=== PATIENT | female | born 1995 | race Caucasian/White ===

== ENCOUNTER → 2018-04-18 16:35 | Outpatient (CLI) | payer BC, SELFPAY ==
[2018-04-18 18:50] LABS: Thyroid Stimulating Hormone 2.05 uIU/mL (0.47-4.68)
== END ==
PROVIDERS: Visit Provider Physician Assistant
DX: R63.8 Other symptoms and signs concerning food and fluid intake (principal)
CPT/HCPCS: 36415; 84443

== ENCOUNTER → 2020-12-31 09:31 | Outpatient (CLI) | payer OTHER, MEDICAID, SELFPAY ==
[2020-12-31] MEDS: COVID-19 VACC #1, MRNA(MOD) 100 MCG/0.5 ML VIAL IM (09:39)
== END ==
PROVIDERS: PCP Registered Nurse Diabetes Educator; Visit Provider Internal Medicine
DX: Z23 Encounter for immunization (principal)
CPT/HCPCS: 0011A; 91301

== ENCOUNTER → 2021-01-29 09:49 | Outpatient (CLI) | payer OTHER, MEDICAID, SELFPAY ==
[2021-01-29] MEDS: COVID-19 VACC #2, MRNA(MOD) 100 MCG/0.5 ML VIAL IM (09:55)
== END ==
PROVIDERS: PCP Registered Nurse Diabetes Educator; Visit Provider Internal Medicine
DX: Z23 Encounter for immunization (principal)
CPT/HCPCS: 0012A; 91301

== ENCOUNTER 2022-11-20 14:00 | Emergency (ER) | payer OTHER, MEDICAID, SELFPAY ==
[2022-11-20] VITALS (21 sets, daily range): BP systolic 93–126; BP diastolic 53–76; PULSE 60–96; RESP 13–28; TEMP 37.2; O2SAT 93–100; BMI 23.3
[2022-11-20] MEDS: MECLIZINE HCL 12.5 MG TABLET 25 MG PO (14:48)
[2022-11-20] MEDS: ONDANSETRON 4 MG ODT SL (14:48)
--- NOTE | 2022-11-20 16:47 | PC.NURSE ---
Pt also reporting neck numbness with difficulty swallowing. Pt denies any allergies medications.
--- NOTE | 2022-11-20 16:55 | DI.RAD.S_ITS ---
PROCEDURE: XR CHEST 1V INDICATIONS: chest pain TECHNIQUE: One view of the chest was acquired. COMPARISON: None. FINDINGS: Surgical changes and devices: None. Lungs and pleura: On this semiupright portable chest examination, no large pneumothorax or large pleural effusions are seen. No focal infiltrates are seen. Mediastinum: Mediastinal contours appear normal. Heart size is normal. Bones and chest wall: No suspicious bony lesions. Overlying soft tissues appear unremarkable. IMPRESSION: Normal portable chest. Dictated by: Ken Mcarthur M.D. on 11/20/2022 at 16:25 Approved by: Ken Mcarthur M.D. on 11/20/2022 at 16:26
[2022-11-20 17:34] LABS: Add Manual Diff / Slide Review NO; Basophils Absolute Auto 0 /uL (0-100); Basophils Percent Auto 0.4 % (0-2); Eosinophils Absolute Auto 0 /uL (0-450); Eosinophils Percent Auto 0.5 % (2-4); Hematocrit 40.6 % (36-46); Hemoglobin 13.7 g/dL (12.0-16.0); Lymphocytes Absolute Auto 2100 /uL (1100-4500); Lymphocytes Percent Auto 29.6 % (25-40); Mean Corpuscular HGB Conc 33.7 % (30-36); Mean Corpuscular Hemoglobin 30.8 PG (26-34); Mean Corpuscular Volume 91.3 fL (80-100); Monocytes Absolute Auto 400 /uL (0-900); Monocytes Percent Auto 5.1 % (3-14); Neutrophils Absolute Auto 4600 /uL (1500-7000); Neutrophils Percent Auto 64.4 % (50-75); Platelet Count 293 X10^3/uL (150-400); Red Blood Cell Count 4.45 X10^6/uL (4.0-5.2); White Blood Cell Count 7.2 X10^3/uL (4.5-11.0)
[2022-11-20 17:41] LABS: COVID19 -Nasal RAPID Negative (Negative)
[2022-11-20 17:43] LABS: Prothrombin Time 11.5 SECONDS (10.1-12.7)
[2022-11-20 17:46] LABS: PTT Partial Thromboplastin Tim 27 SECONDS (26-36)
[2022-11-20 17:54] LABS: Alanine Aminotransferase 16 IU/L (<35); Albumin 4.6 g/dL (3.5-5.0); Albumin Globulin Ratio 1.3 (1.0-2.8); Alkaline Phosphatase 44 U/L (38-126); Aspartate Aminotransferase 25 IU/L (14-36); BUN Creatinine Ratio 18.9 (6-22); Bilirubin Total 0.2 mg/dL (0.2-1.3); Blood Urea Nitrogen 10 mg/dL (7-17); Calcium 9.6 mg/dL (8.4-10.2); Carbon Dioxide 29 mmol/L (22-32); Chloride 102 mmol/L (98-107); Creatine Kinase 68 U/L (30-135); Estimated Glomerular Filt Rate > 60 mL/min (>60); Globulin 3.5 g/dL (1.7-4.1); Glucose 87 mg/dL (70-100); HEMOLYSIS < 15 (0-50); Lipase 120 U/L (23-300); Potassium 3.9 mmol/L (3.4-5.1); Sodium 138 mmol/L (137-145); Total Protein 8.1 g/dL (6.3-8.2)
[2022-11-20 18:06] LABS: Troponin I < 0.012 ng/mL (0.01-0.034)
--- NOTE | 2022-11-20 18:20 | ED.GENADULT ---
HPI - General Adult General Chief complaint: Dizziness Stated complaint: headaches, dizziness, nausea Time Seen by Provider: 11/20/22 18:11 Mode of arrival: Ambulatory History of Present Illness HPI narrative: 27F nonsmoker without chronic medical history presents with about 2 weeks of a gradually worsening generalized headache and lightheadedness. She's had some ear pain bilaterally, but denies any change in hearing or drainage. When questioned about her lightheadedness she states that she is had poor appetite and not been eating and drinking as much as normal. She denies any vomiting or diarrhea but has been a little bit nauseated the past few days. She states that upon standing she feels lightheaded and like she might pass out but she has not. She complains of throat pain and difficulty swallowing but no trouble breathing. No chest pain or shortness of breath. No abdominal pain or diarrhea, no dysuria, frequency or urgency. Related Data Home Medications Medication Instructions Recorded Confirmed spironolactone PO 04/17/18 10/24/22 Previous Rx's Medication Instructions Recorded ketorolac 10 mg tablet 10 mg PO Q6H PRN pain #14 tabs 11/20/22 meclizine 25 mg tablet 25 mg PO BID-TID PRN dizziness #14 11/20/22 tabs ondansetron 4 mg disintegrating 4 mg PO TID-QID PRN nausea and 11/20/22 tablet vomiting #10 tabs Allergies Allergy/AdvReac Type Severity Reaction Status Date / Time tea tree oil Allergy Intermediate swelling Uncoded 11/20/22 14:17 of area of contact. Review of Systems Review of Systems Narrative: GENERAL: Denies chills, fatigue, malaise, fever, sweats. HEENT: See HPI RESPIRATORY: Denies dyspnea, cough, wheezing, hemoptysis, sputum. CARDIOVASCULAR: Denies chest pain, palpitations, orthopnea, edema, GASTROINTESTINAL: See HPI : Denies dysuria, frequency, incontinence, hematuria, urinary retention. MUSCULOSKELETAL: denies weakness, joint pain, or bony pain SKIN: Denies rash, skin lesions, or other NEUROLOGIC: See HPI PSYCHIATRIC: No concerning psychosocial issues. 12 point review of systems is negative except for those stated above Patient History Medical History Acne vulgaris Right otitis media Scoliosis Surgical History Anesthesia Perkins teeth removed Family History Father Hyperlipidemia Grandmother Cancer Grandfather Aneurysm, aortic Grandmother Stroke Social History Smoking Status: Never smoker Smoking Status: Never smoker alcohol intake frequency: holidays/special occasions only Substance Use Type: marijuana Exam Narrative Exam Narrative: GENERAL: [27] year old patient appears stated age. Well-developed patient, in mild distress. HEAD: Atraumatic. Normocephalic. EYES: Pupils equal round and reactive. Extraocular motions intact. No scleral icterus. No injection or drainage. ENT: Moist mucous membranes, Nose without bleeding, purulent drainage. Throat without erythema, tonsillar hypertrophy or exudate. Airway patent. Minimal effusions bilateral ears, no bulging, erythema or loss of landmarks NECK: Trachea midline. Non tender, no meningeal signs CARDIOVASCULAR: Regular rate and rhythm without murmurs, gallops, or rubs. RESPIRATORY: Clear to auscultation. Breath sounds equal bilaterally. No wheezes, rales, or rhonchi. GASTROINTESTINAL: Abdomen soft, non-tender, nondistended. EXTREMITIES: No edema or joint tenderness. BACK: Nontender without deformity or crepitance. No flank tenderness. NEURO: AOx3. Cranial nerves 2-12 grossly intact SKIN: No rash or erythema of visible areas Initial Vital Signs Initial Vital Signs: Vital Signs Temperature 98.9 F 11/20/22 14:07 Pulse Rate 96 H 11/20/22 14:07 Respiratory Rate 16 11/20/22 14:07 Blood Pressure 126/72 11/20/22 14:07 Pulse Oximetry 100 11/20/22 14:07 Oxygen Delivery Method Room Air 11/20/22 14:07 Course Orders Ordered: ED Orders 11/20/22 16:55 XR chest 1V Stat 11/20/22 17:20 CRP [C-Reactive Protein Quant] Stat Complete Blood Count AUTO DIFF Stat Comprehensive Metabolic Panel Stat D Dimer Stat ESR [Erythrocyte Sedimentation Rate] Stat Lipase Stat Magnesium Stat PTT Partial Thromboplastin Sin Stat Prothrombin Time INR Stat Troponin & CK Cardiac Panel Stat 11/20/22 17:22 COVID19 -Nasal RAPID Stat 11/20/22 19:11 Strep Grp A by PCR Rapid Stat Throat Culture Stat 11/20/22 19:52 CT head/brain wo con Stat Discontinued Medications Aspirin (Aspirin 81 Mg Chew Tab) 324 mg PO NOW ONE Stop: 11/20/22 16:56 Last Admin: 11/20/22 16:58 Dose: Not Given Documented By: KLS Sodium Chloride (Normal Saline 0.9%) 1,000 mls @ 1,000 mls/hr IV BOLUS ONE Stop: 11/20/22 19:36 Last Infusion: 11/20/22 20:12 Dose: 0 mls/hr Documented By: Admin: 11/20/22 18:57 Dose: 1,000 mls/hr Documented By: SB Acetaminophen (Ofirmev) 1,000 mg in 100 mls @ 400 mls/hr IV NOW ONE Stop: 11/20/22 20:06 Last Admin: 11/20/22 20:10 Dose: 400 mls/hr Documented By: SB Sodium Chloride (Normal Saline 0.9%) 1,000 mls @ 1,000 mls/hr IV BOLUS ONE Stop: 11/20/22 20:51 Last Admin: 11/20/22 20:10 Dose: 1,000 mls/hr Documented By: SB Ketorolac Tromethamine (Ketorolac 30 Mg/Ml Vial) 15 mg IV NOW ONE Stop: 11/20/22 18:38 Last Admin: 11/20/22 18:57 Dose: 15 mg Documented By: SB Meclizine HCl (Meclizine Hcl 12.5 Mg Tablet) 25 mg PO NOW ONE Stop: 11/20/22 14:42 Last Admin: 11/20/22 14:48 Dose: 25 mg Documented By: [facility] Meclizine HCl (Meclizine Hcl 12.5 Mg Tablet) 50 mg PO NOW ONE Stop: 11/20/22 20:57 Last Admin: 11/20/22 21:04 Dose: 50 mg Documented By: BS Metoclopramide HCl (Metoclopramide 10 Mg/2 Ml Inj) 10 mg IV NOW ONE Stop: 11/20/22 18:38 Last Admin: 11/20/22 18:58 Dose: 10 mg Documented By: SB Ondansetron HCl (Ondansetron 4 Mg Odt) 4 mg SL NOW ONE Stop: 11/20/22 14:44 Last Admin: 11/20/22 14:48 Dose: 4 mg Documented By: [facility] Ondansetron HCl (Ondansetron 4 Mg Odt Prepack) 1 bottle MISC SEEINSTR ONE Stop: 11/20/22 19:46 Last Admin: 11/20/22 19:50 Dose: 1 bottle Documented By: BS Reevaluation(s) Reevaluation #1: Patient received meclizine and reports some improved dizziness Vital Signs Vital signs: Vital Signs - 8 hr 11/20/22 18:16 11/20/22 18:17 11/20/22 18:17 Pulse Rate 73 64 Respiratory Rate 18 14 Blood Pressure 102/59 L Pulse Oximetry 99 11/20/22 18:30 11/20/22 19:00 11/20/22 19:08 Pulse Rate 83 69 69 Respiratory Rate 16 24 24 Blood Pressure Pulse Oximetry 99 99 99 11/20/22 19:08 11/20/22 19:15 11/20/22 19:15 Pulse Rate 68 Respiratory Rate 22 Blood Pressure 107/76 97/57 L Pulse Oximetry 100 11/20/22 19:30 11/20/22 19:30 11/20/22 19:40 Pulse Rate 73 79 Respiratory Rate 15 25 H Blood Pressure 107/63 Pulse Oximetry 98 100 11/20/22 19:40 11/20/22 20:03 11/20/22 20:05 Pulse Rate 73 Respiratory Rate Blood Pressure 110/66 121/53 L Pulse Oximetry 93 11/20/22 20:05 11/20/22 20:15 11/20/22 20:15 Pulse Rate 77 63 Respiratory Rate 24 14 Blood Pressure 93/54 L Pulse Oximetry 100 100 11/20/22 20:29 11/20/22 20:29 11/20/22 20:30 Pulse Rate 81 Respiratory Rate 28 H Blood Pressure 120/75 114/60 Pulse Oximetry 100 11/20/22 20:30 11/20/22 20:45 11/20/22 20:45 Pulse Rate 69 60 Respiratory Rate 20 13 Blood Pressure 102/62 Pulse Oximetry 100 100 11/20/22 20:59 11/20/22 20:59 11/20/22 21:00 Pulse Rate 76 66 Respiratory Rate 18 18 Blood Pressure 104/68 Pulse Oximetry 100 100 Medical Decision Making Lab Data 11/20/22 17:20 11/20/22 17:20 Labs: Lab Results 11/20/22 11/20/22 11/20/22 Range/Units 17:20 17:20 17:20 WBC 7.2 (4.5-11.0) X10^3/uL RBC 4.45 (4.0-5.2) X10^6/uL Hgb 13.7 (12.0-16.0) g/dL Hct 40.6 (36-46) % MCV 91.3 (80-100) fL MCH 30.8 (26-34) PG MCHC 33.7 (30-36) % RDW 13.0 (11.6-14.8) % Plt Count 293 (150-400) X10^3/uL Neut % (Auto) 64.4 (50-75) % Lymph % (Auto) 29.6 (25-40) % [place] % (Auto) 5.1 (3-14) % Eos % (Auto) 0.5 L (2-4) % Baso % (Auto) 0.4 (0-2) % Neut # (Auto) 4600 (9192-7901) /uL Lymph # (Auto) 2100 (6792-6484) /uL [place] # (Auto) 400 (0-900) /uL Eos # (Auto) 0 (0-450) /uL Baso # (Auto) 0 (0-100) /uL ESR (0-20) MM/HR PT 11.5 (10.1-12.7) SECONDS INR 1.0 (0.9-1.3) APTT 27 (26-36) SECONDS D-Dimer (<500) ng/ml Sodium 138 (137-145) mmol/L Potassium 3.9 (3.4-5.1) mmol/L Chloride 102 (98-107) mmol/L Carbon Dioxide 29 (22-32) mmol/L BUN 10 (7-17) mg/dL Creatinine 0.53 (0.52-1.04) mg/dL Estimated GFR > 60 (>60) mL/min BUN/Creatinine Ratio 18.9 (6-22) Glucose 87 (70-100) mg/dL Calcium 9.6 (8.4-10.2) mg/dL Magnesium 2.0 (1.6-2.3) mg/dL Total Bilirubin 0.2 (0.2-1.3) mg/dL AST 25 (14-36) IU/L ALT 16 (<35) IU/L Alkaline Phosphatase 44 (38-126) U/L Total Creatine Kinase 68 (30-135) U/L CK-MB (CK-2) TNP CK-MB (CK-2) Rel Index TNP Troponin I < 0.012 (0.01-0.034) ng/mL C-Reactive Protein (<1.0) mg/dL Total Protein 8.1 (6.3-8.2) g/dL Albumin 4.6 (3.5-5.0) g/dL Globulin 3.5 (1.7-4.1) g/dL Albumin/Globulin Ratio 1.3 (1.0-2.8) Lipase 120 (23-300) U/L SARS-CoV-2 (PCR) (Negative) Group A Strep (PCR) (Negative) 11/20/22 11/20/22 11/20/22 Range/Units 17:20 17:20 17:20 WBC (4.5-11.0) X10^3/uL RBC (4.0-5.2) X10^6/uL Hgb (12.0-16.0) g/dL Hct (36-46) % MCV (80-100) fL MCH (26-34) PG MCHC (30-36) % RDW (11.6-14.8) % Plt Count (150-400) X10^3/uL Neut % (Auto) (50-75) % Lymph % (Auto) (25-40) % [place] % (Auto) (3-14) % Eos % (Auto) (2-4) % Baso % (Auto) (0-2) % Neut # (Auto) (8357-9348) /uL Lymph # (Auto) (4098-9448) /uL [place] # (Auto) (0-900) /uL Eos # (Auto) (0-450) /uL Baso # (Auto) (0-100) /uL ESR 8 (0-20) MM/HR PT (10.1-12.7) SECONDS INR (0.9-1.3) APTT (26-36) SECONDS D-Dimer < 215 (<500) ng/ml Sodium (137-145) mmol/L Potassium (3.4-5.1) mmol/L Chloride (98-107) mmol/L Carbon Dioxide (22-32) mmol/L BUN (7-17) mg/dL Creatinine (0.52-1.04) mg/dL Estimated GFR (>60) mL/min BUN/Creatinine Ratio (6-22) Glucose (70-100) mg/dL Calcium (8.4-10.2) mg/dL Magnesium (1.6-2.3) mg/dL Total Bilirubin (0.2-1.3) mg/dL AST (14-36) IU/L ALT (<35) IU/L Alkaline Phosphatase (38-126) U/L Total Creatine Kinase (30-135) U/L CK-MB (CK-2) CK-MB (CK-2) Rel Index Troponin I (0.01-0.034) ng/mL C-Reactive Protein < 0.5 (<1.0) mg/dL Total Protein (6.3-8.2) g/dL Albumin (3.5-5.0) g/dL Globulin (1.7-4.1) g/dL Albumin/Globulin Ratio (1.0-2.8) Lipase (23-300) U/L SARS-CoV-2 (PCR) (Negative) Group A Strep (PCR) (Negative) 11/20/22 11/20/22 Range/Units 17:22 19:11 WBC (4.5-11.0) X10^3/uL RBC (4.0-5.2) X10^6/uL Hgb (12.0-16.0) g/dL Hct (36-46) % MCV (80-100) fL MCH (26-34) PG MCHC (30-36) % RDW (11.6-14.8) % Plt Count (150-400) X10^3/uL Neut % (Auto) (50-75) % Lymph % (Auto) (25-40) % [place] % (Auto) (3-14) % Eos % (Auto) (2-4) % Baso % (Auto) (0-2) % Neut # (Auto) (0304-9837) /uL Lymph # (Auto) (9775-9601) /uL [place] # (Auto) (0-900) /uL Eos # (Auto) (0-450) /uL Baso # (Auto) (0-100) /uL ESR (0-20) MM/HR PT (10.1-12.7) SECONDS INR (0.9-1.3) APTT (26-36) SECONDS D-Dimer (<500) ng/ml Sodium (137-145) mmol/L Potassium (3.4-5.1) mmol/L Chloride (98-107) mmol/L Carbon Dioxide (22-32) mmol/L BUN (7-17) mg/dL Creatinine (0.52-1.04) mg/dL Estimated GFR (>60) mL/min BUN/Creatinine Ratio (6-22) Glucose (70-100) mg/dL Calcium (8.4-10.2) mg/dL Magnesium (1.6-2.3) mg/dL Total Bilirubin (0.2-1.3) mg/dL AST (14-36) IU/L ALT (<35) IU/L Alkaline Phosphatase (38-126) U/L Total Creatine Kinase (30-135) U/L CK-MB (CK-2) CK-MB (CK-2) Rel Index Troponin I (0.01-0.034) ng/mL C-Reactive Protein (<1.0) mg/dL Total Protein (6.3-8.2) g/dL Albumin (3.5-5.0) g/dL Globulin (1.7-4.1) g/dL Albumin/Globulin Ratio (1.0-2.8) Lipase (23-300) U/L SARS-CoV-2 (PCR) Negative (Negative) Group A Strep (PCR) Negative (Negative) Point of Care Testing Test Results Negative Urine Dip Bedside Urine Glucose Negative Bedside Urine Bilirubin - Negative Bedside Urine Ketone - Negative Urine Specific [place] 1.010 Bedside Urine Occult Blood - Negative Bedside Urine pH 6.5 Bedside Urine Protein - Negative Bedside Urine Urobilinogen - Negative Bedside Urine Nitrite - Negative Bedside Urine Leukocytes - Negative Esterase Point of care testing: Point of Care Testing Test Results Negative Urine Dip Bedside Urine Glucose Negative Bedside Urine Bilirubin - Negative Bedside Urine Ketone - Negative Urine Specific [place] 1.010 Bedside Urine Occult Blood - Negative Bedside Urine pH 6.5 Bedside Urine Protein - Negative Bedside Urine Urobilinogen - Negative Bedside Urine Nitrite - Negative Bedside Urine Leukocytes - Negative Esterase MDM Narrative Medical decision making narrative: CC: 27-year-old female with various symptoms including headache, dizziness, and nausea Complicating co-morbidities: None known Data collected from: Patient Medical records reviewed: Prior notes reviewed in our EMR Differential considered, but not limited to: Viral upper respiratory infection, dehydration, intracranial hemorrhage, meningitis, versus other Exam documented above, pertinent findings include: Alert and oriented x3, no meningeal signs, heart rate regular, lungs clear, abdomen soft, no focal neurologic findings Lab Test results independently reviewed as above. Pertinent findings: No leukocytosis or left shift, no signs of anemia, electrolytes and renal function within normal, strep and COVID negative Imaging studies independently reviewed: Head CT without acute findings Treatments: Fluids, Toradol, Reglan, meclizine Re-evaluations: Significant improvement, dizziness tremendously improved, headache tremendously improved. Vitals stable, patient ambulatory in the department, tolerating orals. Discussion: Previously healthy patient with about 2 weeks of various symptoms that seem most likely related to a viral syndrome. She has reassuring history and physical exam, labs, imaging and response to therapies. No evidence of any significant lab abnormality, head CT without significant findings. Though meningitis considered as thought extremely unlikely given her history and physical, lack of meningeal signs. We did discuss performing a lumbar puncture including the risks and benefits of doing so. This discussion was between myself the patient and her mother. We sure the opinion that the risk is not worth the potential benefit at this time given her reassuring presentation. Disposition: see below, along with detailed discharge instructions that have been reviewed with patient as well as indications for ED re-evaluation and additional outpatient follow up Discharge Plan Departure Patient Disposition: Home Clinical Impression: Acute viral syndrome Instructions: DI for Viral Syndrome Activity Restrictions/Additional Instructions: *You have been diagnosed with [Viral syndrome ] *What to do: *Please continue to take your regular medications as directed. [ x] New medication prescriptions sent to your pharmacy: [ [facility]] [ ] New medication written as a paper prescription [ ] No new medications given *Please follow up with your primary care provider in 2-3 days, call for an appointment. Let them know you were seen in the Emergency Department and that we ask that you be seen in follow up. We will electronically transmit a record of today's note if your PCP is in our system *If you do not have a primary care provider please contact the [facility] Resource line at [phone]. They will ask some questions about your medical history and help get you set up with a doctor in the community. *Return to Emergency Department if you should have any new, worsening or concerning symptoms, such as [fever greater than 101 F, shaking chills, worsening pain, persistent vomiting or other bothersome symptoms] Prescriptions: New ketorolac 10 mg tablet 10 mg PO Q6H PRN (Reason: pain) Qty: 14 0RF ondansetron 4 mg tablet,disintegrating 4 mg PO TID-QID PRN (Reason: nausea and vomiting) Qty: 10 0RF meclizine 25 mg tablet 25 mg PO BID-TID PRN (Reason: dizziness) Qty: 14 0RF No Action spironolactone PO Stand Alone Forms: Patient Portal/API
[2022-11-20 18:37] LABS: D Dimer < 215 ng/ml (<500)
[2022-11-20 18:42] LABS: C-Reactive Protein Quant < 0.5 mg/dL (<1.0)
[2022-11-20] MEDS: KETOROLAC 30 MG/ML VIAL 15 MG IV (18:57)
[2022-11-20] MEDS: SODIUM CHLORIDE 0.9% 1,000 ML 1000 ML IV ×2 (18:57→20:10)
[2022-11-20] MEDS: METOCLOPRAMIDE 10 MG/2 ML INJ IV (18:58)
[2022-11-20 19:31] LABS: Erythrocyte Sedimentation Rate 8 MM/HR (0-20)
[2022-11-20 19:38] LABS: Strep Grp A by PCR Rapid Negative (Negative)
[2022-11-20] MEDS: ONDANSETRON 4 MG ODT PREPACK 1 BOTTLE MISC (19:50)
--- NOTE | 2022-11-20 19:52 | DI.CT.S_ITS ---
PROCEDURE: CT HEAD/BRAIN WO CON INDICATIONS: severe headache, prior brain swelling TECHNIQUE: Noncontrast 4.5 mm thick angled axial sections acquired from the foramen magnum to the vertex, with coronal and sagittal reformats. For radiation dose reduction, the following was used: automated exposure control, adjustment of mA and/or kV according to patient size. COMPARISON: None. FINDINGS: Image quality: Excellent. CSF spaces: Basal cisterns are patent. No extra-axial fluid collections. Ventricles are normal in size and shape. Brain: No intracranial hemorrhage, mass, or mass effect. Valadez-white matter interface appears preserved. Skull and face: Calvarium and visualized facial bones are intact, without suspicious lesions. Sinuses: Visualized sinuses and mastoids are clear. IMPRESSION: 1. No acute intracranial abnormality. Dictated by: Alireza Ayala M.D. on 11/20/2022 at 20:33 Approved by: Alireza Ayala M.D. on 11/20/2022 at 20:34
[2022-11-20] MEDS: ACETAMINOPHEN IV 1,000 MG/100 ML VIAL 400 MG IV (20:10)
[2022-11-20] MEDS: MECLIZINE HCL 12.5 MG TABLET 50 MG PO (21:04)
== END 2022-11-20 21:08 | disposition home or self-care (01) ==
PROVIDERS: Emergency Medicine; Emergency Provider Emergency Medicine
DX: B34.9 Viral infection, unspecified (principal); H92.03 Otalgia, bilateral; R51.9 Headache, unspecified; R07.9 Chest pain, unspecified; Z20.822 Contact with and (suspected) exposure to COVID-19
CPT/HCPCS: 36415; 70450; 71045; 80053; 81003; 81025; 82550; 83690; 83735; 84484; 85025; 85379; 85610; 85651; 85730; 86140; 87070; 87635; 87651; 93005; 96361; 96365; 96375; 99284; C9803; J0131; J1885; J2765